=== PATIENT | female | born 1970 | race Caucasian/White ===

== ENCOUNTER 2021-06-20 09:19 | Inpatient (IN) | payer MEDICAID ==
[~2021-06-20] VITALS: Ht 165.1 cm; Wt 81.6 kg
[~2021-06-20 09:19] MED LIST: AMLO5TAB88 MT; ATOR40TA70 MT; CIPR-263 MT; METF-414 MT; METO25TA6 PO; METR500T MT; PANT40TA51 MT; TOPUD PO
[2021-06-20] MEDS ORDERED: FAMOTIDINE 20MG/2ML VIAL IV STA (10:35)
[2021-06-20] MEDS ORDERED: SODIUM CHLORIDE 0.9% 1,000 ML IV ONE (10:45)
[2021-06-20 10:47] LABS: BASOPHILS % 0.5 % (0.0-2.0); EOSINOPHILS % 0.5 % (0.0-5.0); HEMATOCRIT. 40.2 % (36.0-48.0); HEMOGLOBIN. 13.1 g/dL (12.0-16.0); LYMPHOCYTES % 9.8 % (20.0-50.0); MEAN CORPUSCULAR HEMOGLOBIN 26.7 pg (28.0-32.0); MEAN CORPUSCULAR VOLUME 81.9 fL (81.0-99.0); MEAN PLATELET VOLUME 8.6 fl (7.4-10.4); MONOCYTES % 7.8 % (2.0-8.0); NEUTROPHILS % 81.4 % (40.0-76.0); PLATELET 267 x1000/uL (130-400); RED BLOOD CELL COUNT 4.91 mill/uL (4.2-5.4)
[2021-06-20 10:55] LABS: CHLORIDE 104 mEq/L (98-107); INR 1.1; PROTHROMBIN TIME 11.4 sec (9.6-11.0)
[2021-06-20 11:02] LABS: ETHANOL BLOOD < 10 mg/dL
[2021-06-20 11:04] LABS: HCG SCREEN NEGATIVE
[2021-06-20 11:05] LABS: CLARITY URINE CLEAR (CLEAR); COLOR URINE YELLOW (YELLOW); KETONES URINE NEGATIVE (NEGATIVE); LEUKOCYTE ESTERASE URINE NEGATIVE (NEGATIVE); NITRITE URINE NEGATIVE (NEGATIVE); OCCULT BLOOD URINE NEGATIVE (NEGATIVE); PROTEIN URINE NEGATIVE (NEGATIVE); SPECIFIC GRAVITY URINE 1.017 (1.005-1.030)
[2021-06-20 11:27] LABS: *AMPHETAMINES SCREEN URINE NEGATIVE (NEGATIVE); CANNABINOID URINE SCREEN NEGATIVE (NEGATIVE); PHENCYCLIDINE URINE SCREEN NEGATIVE (NEGATIVE)
[2021-06-20 11:28] LABS: *BARBITURATES SCREEN URINE NEGATIVE (NEGATIVE); *BENZODIAZEPINES SCREEN URINE NEGATIVE (NEGATIVE); *COCAINE SCREEN URINE NEGATIVE (NEGATIVE); METHADONE URINE SCREEN NEGATIVE (NEGATIVE); OPIATES URINE SCREEN NEGATIVE (NEGATIVE)
[2021-06-20] MEDS ORDERED: SODIUM CHLORIDE 0.9% 500 ML IV ONE (17:45)
[2021-06-20] MEDS ORDERED: DOCUSATE SODIUM 100MG CAPSULE PO PRN (18:30)
[2021-06-20] MEDS ORDERED: ACETAMINOPHEN 650MG/20.3ML UDC GT PRN (18:30)
[2021-06-20] MEDS ORDERED: GUAIFENESIN 200MG/10ML SUGAR FREE UDC PO PRN (18:30)
[2021-06-20] MEDS ORDERED: CLONIDINE 0.1MG TABLET PO PRN (18:30)
[2021-06-20] MEDS ORDERED: ONDANSETRON HCL 4MG/2ML INJ IV PRN ×2 (18:30→21:30)
[2021-06-20] MEDS ORDERED: NA PHOS,M-B/NA PHOS,DI-BA ENEMA 118ML PR PRN (19:00)
[2021-06-20] MEDS: SODIUM CHLORIDE 0.45% 1,000 ML IV SCH (20:11)
[2021-06-20] MEDS: ENOXAPARIN 40MG/0.4ML SYR SUBCUT SCH (20:13)
[2021-06-21 03:26] VITALS: BP 121/82
[2021-06-21] MEDS: SODIUM CHLORIDE 0.45% 1,000 ML IV SCH ×2 (06:18→16:30)
[2021-06-21 08:00] VITALS: BP 105/70
[2021-06-21] MEDS: ACETAMINOPHEN 325MG TABLET PO PRN ×2 (08:36→16:30)
[2021-06-21] MEDS ORDERED: LEVOFLOXACIN 500MG PREMIX 100 ML IV SCH (10:00)
[2021-06-21 10:35] LABS: BASOPHILS % 0.2 % (0.0-2.0); HEMATOCRIT. 35.2 % (36.0-48.0); HEMOGLOBIN. 11.6 g/dL (12.0-16.0); LYMPHOCYTES % 9.9 % (20.0-50.0); MEAN CORPUSCULAR VOLUME 81.8 fL (81.0-99.0); MEAN PLATELET VOLUME 9.6 fl (7.4-10.4); MONOCYTES % 5.2 % (2.0-8.0); NEUTROPHILS % 84.7 % (40.0-76.0); PLATELET 220 x1000/uL (130-400)
[2021-06-21 10:36] LABS: CHLORIDE 104 mEq/L (98-107)
[2021-06-21 10:44] LABS: HDL CHOLESTEROL 37 mg/dL (40-59); LDL CHOLESTEROL 43 mg/dL (5-100)
[2021-06-21] MEDS ORDERED: METRONIDAZOLE 500 MG PREMIX 100 ML IV SCH (11:30)
[2021-06-21 11:47] VITALS: BP 106/65
[2021-06-21] MEDS ORDERED: POTASSIUM CHLORIDE 20MEQ TABLET SR PO NR (14:30)
[2021-06-21 15:54] VITALS: BP 123/72
[2021-06-21] MEDS: PIPERACILLIN/TAZOBACTAM 3.375G in DEXT 5% WATER 50ML IV SCH ×2 (16:30→21:27)
[2021-06-21 17:32] LABS: CLARITY URINE CLEAR (CLEAR); COLOR URINE YELLOW (YELLOW); KETONES URINE 2+ (NEGATIVE); LEUKOCYTE ESTERASE URINE NEGATIVE (NEGATIVE); NITRITE URINE NEGATIVE (NEGATIVE); OCCULT BLOOD URINE NEGATIVE (NEGATIVE); PH URINE 6.5 (4.5-8.0); PROTEIN URINE TRACE (NEGATIVE); SPECIFIC GRAVITY URINE 1.014 (1.005-1.030)
[2021-06-21 20:00] VITALS: BP 101/60
[2021-06-21] MEDS: ENOXAPARIN 40MG/0.4ML SYR SUBCUT SCH (21:12)
[2021-06-22] VITALS: BP 119/69
[2021-06-22 04:00] VITALS: BP 107/88
[2021-06-22] MEDS: PIPERACILLIN/TAZOBACTAM 3.375G in DEXT 5% WATER 50ML IV SCH ×3 (05:21→21:37)
[2021-06-22] MEDS: ACETAMINOPHEN 325MG TABLET PO PRN ×2 (06:28→21:36)
[2021-06-22 07:56] LABS: BASOPHILS % 0.2 % (0.0-2.0); HEMATOCRIT. 33.3 % (36.0-48.0); LYMPHOCYTES % 9.9 % (20.0-50.0); MEAN CORPUSCULAR HEMOGLOBIN 26.8 pg (28.0-32.0); MEAN CORPUSCULAR VOLUME 81.1 fL (81.0-99.0); MEAN PLATELET VOLUME 9.2 fl (7.4-10.4); NEUTROPHILS % 82.9 % (40.0-76.0); PLATELET 190 x1000/uL (130-400); RED BLOOD CELL COUNT 4.11 mill/uL (4.2-5.4)
[2021-06-22 08:00] VITALS: BP 101/58
[2021-06-22 08:20] LABS: CHLORIDE 105 mEq/L (98-107)
[2021-06-22] MEDS ORDERED: POTASSIUM CHLORIDE 20MEQ TABLET SR PO NR (15:00)
[2021-06-22 16:00] VITALS: BP 125/84
[2021-06-22 20:38] VITALS: BP 122/80
[2021-06-22] MEDS: MAGNESIUM/ALUMINUM HYDROXIDE/SIMETHICONE 30ML UDC PO PRN (21:36)
[2021-06-22] MEDS: ENOXAPARIN 40MG/0.4ML SYR SUBCUT SCH (21:37)
[2021-06-22] MEDS: SODIUM CHLORIDE 0.45% 1,000 ML IV SCH (21:40)
[2021-06-23] VITALS (7 sets, daily range): BP systolic 127–137; BP diastolic 67–89
[2021-06-23] MEDS: MAGNESIUM/ALUMINUM HYDROXIDE/SIMETHICONE 30ML UDC PO PRN (04:36)
[2021-06-23] MEDS: PIPERACILLIN/TAZOBACTAM 3.375G in DEXT 5% WATER 50ML IV SCH ×2 (06:18→15:04)
[2021-06-23] MEDS: SODIUM CHLORIDE 0.45% 1,000 ML IV SCH (07:30)
[2021-06-23 09:38] LABS: BASOPHILS % 0.2 % (0.0-2.0); EOSINOPHILS % 0.2 % (0.0-5.0); LYMPHOCYTES % 11.3 % (20.0-50.0); MEAN CORPUSCULAR HEMOGLOBIN 27.8 pg (28.0-32.0); MEAN CORPUSCULAR VOLUME 80.8 fL (81.0-99.0); MEAN PLATELET VOLUME 9.4 fl (7.4-10.4); MONOCYTES % 8.9 % (2.0-8.0); NEUTROPHILS % 79.4 % (40.0-76.0); PLATELET 202 x1000/uL (130-400); RED BLOOD CELL COUNT 3.96 mill/uL (4.2-5.4); RED CELL DISTRIBUTION WIDTH 14.9 % (11.6-14.6)
[2021-06-23 10:14] LABS: CHLORIDE 104 mEq/L (98-107)
[2021-06-23] MEDS ORDERED: POTASSIUM CHLORIDE 20MEQ TABLET SR PO NR (11:15)
[2021-06-23] MEDS: PANTOPRAZOLE SODIUM 40 MG/VIAL IV SCH ×2 (13:45→17:00)
== END 2021-06-23 21:35 | disposition home or self-care (01) | DRG 282 ==
LOC: ER 09:19 → EDBEDREQ 14:20 → 8WST 06-21 03:05
PROVIDERS: ADMIT Family Medicine; ATTEND Family Medicine
DX: K85.90 Acute pancreatitis without necrosis or infection, unspecified (principal); K76.0 Fatty (change of) liver, not elsewhere classified; R16.0 Hepatomegaly, not elsewhere classified; R65.10 Systemic inflammatory response syndrome (SIRS) of non-infectious origin without acute organ dysfunction; E78.5 Hyperlipidemia, unspecified; E86.0 Dehydration; I10 Essential (primary) hypertension; J98.11 Atelectasis; K80.20 Calculus of gallbladder without cholecystitis without obstruction; N20.0 Calculus of kidney; Z79.899 Other long term (current) drug therapy
CPT/HCPCS: 36415; 71045; 74176; 76705; 80048; 80053; 80061; 80076; 80305; 80320; 81003; 82105; 82378; 84703; 85025; 86301; 93005; 99285; C9113; J1650; J1956; J2405; J2543; J3490; J7030; J7060; G0480